=== PATIENT | female | born 1985 | race African-American/Black ===

== ENCOUNTER 2020-06-10 13:48 | Inpatient (IN) | payer SELFPAY ==
[~2020-06-10] VITALS: Ht 165.1 cm; Wt 135.6 kg
[2020-06-10] MEDS ORDERED: SODIUM CHLORIDE 0.9% 1,000 ML IV ONE (14:30)
[2020-06-10 14:59] LABS: BASOPHILS % 0.2 % (0.0-2.0); EOSINOPHILS % 1.6 % (0.0-5.0); LYMPHOCYTES % 35.2 % (20.0-50.0); MEAN CORPUSCULAR HEMOGLOBIN 16.8 pg (28.0-32.0); MEAN CORPUSCULAR VOLUME 56.6 fL (81.0-99.0); MEAN PLATELET VOLUME 9.1 fl (7.4-10.4); MONOCYTES % 5.8 % (2.0-8.0); NEUTROPHILS % 57.2 % (40.0-76.0); PLATELET 327 x1000/uL (130-400); RED CELL DISTRIBUTION WIDTH 20.1 % (11.6-14.6)
[2020-06-10 15:08] LABS: CHLORIDE 109 mEq/L (98-107)
[2020-06-10 15:10] LABS: HCG SCREEN NEGATIVE
[2020-06-10 15:12] LABS: HEMATOCRIT. 17.5 % (36.0-48.0); HEMOGLOBIN. 5.2 g/dL (12.0-16.0)
[2020-06-10 15:21] LABS: B-HCG QUANTITATIVE < 1 mIU/mL (<3)
[2020-06-10 15:34] LABS: CLARITY URINE CLOUDY (CLEAR); COLOR URINE ORANGE (YELLOW); KETONES URINE TRACE (NEGATIVE); LEUKOCYTE ESTERASE URINE 1+ (NEGATIVE); NITRITE URINE NEGATIVE (NEGATIVE); OCCULT BLOOD URINE 3+ (NEGATIVE); PH URINE 5.5 (4.5-8.0); PROTEIN URINE 2+ (NEGATIVE); SPECIFIC GRAVITY URINE 1.023 (1.005-1.030); UROBILINOGEN URINE 0.2 E.U./dL (0.2-1.0)
[2020-06-10 15:48] LABS: PLATELET ESTIMATE NORMAL
[2020-06-10] MEDS ORDERED: CEFTRIAXONE 1 G PREMIX 50 ML IV ONE (16:00)
[2020-06-10 16:04] LABS: TOTAL IRON BINDING CAPACITY 483 ug/dL (250-450)
[2020-06-10 16:18] LABS: *BARBITURATES SCREEN URINE NEGATIVE (NEGATIVE); *COCAINE SCREEN URINE NEGATIVE (NEGATIVE); OPIATES URINE SCREEN NEGATIVE (NEGATIVE)
[2020-06-10 16:19] LABS: *AMPHETAMINES SCREEN URINE NEGATIVE (NEGATIVE); *BENZODIAZEPINES SCREEN URINE NEGATIVE (NEGATIVE); CANNABINOID URINE SCREEN NEGATIVE (NEGATIVE); METHADONE URINE SCREEN NEGATIVE (NEGATIVE); PHENCYCLIDINE URINE SCREEN NEGATIVE (NEGATIVE)
[2020-06-10] MEDS ORDERED: MEDROXYPROGESTERONE ACETATE 150MG/ML VIAL IM ONE ×2 (18:15→22:00)
[2020-06-10 21:02] LABS: BASOPHILS % 0.4 % (0.0-2.0); EOSINOPHILS % 1.8 % (0.0-5.0); LYMPHOCYTES % 30.4 % (20.0-50.0); MEAN CORPUSCULAR HEMOGLOBIN 17.5 pg (28.0-32.0); MEAN CORPUSCULAR VOLUME 59.5 fL (81.0-99.0); MEAN PLATELET VOLUME 9.2 fl (7.4-10.4); MONOCYTES % 7.1 % (2.0-8.0); NEUTROPHILS % 60.3 % (40.0-76.0); PLATELET 302 x1000/uL (130-400); RED BLOOD CELL COUNT 3.16 mill/uL (4.2-5.4); RED CELL DISTRIBUTION WIDTH 21.7 % (11.6-14.6)
[2020-06-10 21:09] LABS: CHLORIDE 110 mEq/L (98-107)
[2020-06-10 21:14] LABS: HEMATOCRIT. 18.8 % (36.0-48.0); HEMOGLOBIN. 5.5 g/dL (12.0-16.0)
[2020-06-10 22:00] VITALS: BP 144/74
[2020-06-11] VITALS (13 sets, daily range): BP systolic 129–155; BP diastolic 61–88
[2020-06-11] MEDS: SODIUM CHLORIDE 0.45% 1,000 ML IV SCH ×2 (05:20→08:29)
[2020-06-11] MEDS ORDERED: MEDROXYPROGESTERONE ACETATE 150MG/ML VIAL IM SCH (06:00)
[2020-06-11 08:00] LABS: BASOPHILS % 0.2 % (0.0-2.0); EOSINOPHILS % 1.2 % (0.0-5.0); HEMATOCRIT. 26.2 % (36.0-48.0); LYMPHOCYTES % 22.9 % (20.0-50.0); MEAN CORPUSCULAR HEMOGLOBIN 19.8 pg (28.0-32.0); MEAN CORPUSCULAR VOLUME 64.9 fL (81.0-99.0); MEAN PLATELET VOLUME 8.8 fl (7.4-10.4); NEUTROPHILS % 68.7 % (40.0-76.0); PLATELET 310 x1000/uL (130-400); RED BLOOD CELL COUNT 4.04 mill/uL (4.2-5.4); RED CELL DISTRIBUTION WIDTH 29.7 % (11.6-14.6)
[2020-06-11] MEDS: FERROUS SULFATE 325MG TABLET PO SCH ×3 (08:29→17:23)
[2020-06-11] MEDS: MULTIVITAMINS,THER W-MINERALS TABLET PO SCH (08:29)
[2020-06-11] MEDS: DOCUSATE SODIUM 100MG CAPSULE PO SCH ×2 (08:29→17:22)
[2020-06-12] VITALS: BP 138/82
[2020-06-12 04:00] VITALS: BP 139/77
[2020-06-12] MEDS ORDERED: FERR325T23 PO (07:57)
[2020-06-12 08:00] VITALS: BP 138/82
[2020-06-12] MEDS: FERROUS SULFATE 325MG TABLET PO SCH (08:22)
[2020-06-12] MEDS: DOCUSATE SODIUM 100MG CAPSULE PO SCH (08:22)
[2020-06-12] MEDS: MULTIVITAMINS,THER W-MINERALS TABLET PO SCH (08:22)
== END 2020-06-12 09:34 | disposition home or self-care (01) | DRG 663 ==
LOC: EDBD 13:48 → ER 13:48 → 6EST 15:44 → ENRESERV 20:39
PROVIDERS: ADMIT Specialist; ATTEND Specialist
PROC: 30233N1 Transfusion of Nonautologous Red Blood Cells into Peripheral Vein, Percutaneous Approach (ICD-10-PCS; principal; 2020-06-10)
PROC: 30233N1 Transfusion of Nonautologous Red Blood Cells into Peripheral Vein, Percutaneous Approach (ICD-10-PCS; 2020-06-11)
DX: D64.9 Anemia, unspecified (principal); D25.9 Leiomyoma of uterus, unspecified; N92.0 Excessive and frequent menstruation with regular cycle; E66.9 Obesity, unspecified; I10 Essential (primary) hypertension; Z82.3 Family history of stroke; Z98.891 History of uterine scar from previous surgery; Z88.8 Allergy status to other drugs, medicaments and biological substances
CPT/HCPCS: 36415; 76830; 76856; 80053; 80305; 81003; 83540; 83550; 84702; 84703; 85025; 85044; 86850; 86900; 86920; 93005; 99291; J0696; J1050; J7030; J7040; P9016

== ENCOUNTER 2025-04-03 21:11 | Emergency (ER) | payer OTHER, MEDICAID ==
[~2025-04-03] VITALS: Ht 167.6 cm; Wt 138.9 kg
[~2025-04-03 21:11] MED LIST: FERR325T23 PO
[2025-04-03 21:31] VITALS: O2SAT 100
[2025-04-03] MEDS: METHOCARBAMOL 500MG TABLET PO ONE (22:34)
[2025-04-03] MEDS: KETOROLAC 30MG/ML VIAL IM ONE (22:34)
[2025-04-03] MEDS ORDERED: LIDO700A30 TP (22:51)
[2025-04-03] MEDS ORDERED: METH-653 MT (22:51)
[2025-04-03] MEDS ORDERED: IBUP-1455 MT (22:51)
[2025-04-03 23:29] VITALS: BP 171/109; PULSE 74; RESP 18; TEMP 36.7; O2SAT 98
== END 2025-04-03 23:30 | disposition home or self-care (01) ==
LOC: ER 21:11
DX: S43.402A Unspecified sprain of left shoulder joint, initial encounter (principal); I10 Essential (primary) hypertension; Z98.890 Other specified postprocedural states; Z90.710 Acquired absence of both cervix and uterus; Z88.5 Allergy status to narcotic agent; V89.2XXA Person injured in unspecified motor-vehicle accident, traffic, initial encounter; Y93.89 Activity, other specified; Y92.410 Unspecified street and highway as the place of occurrence of the external cause; Y99.8 Other external cause status
CPT/HCPCS: 99283; 81025; 73030; 96372; J1885